=== PATIENT | male | born 1955 | race Caucasian/White ===

== ENCOUNTER → 2021-10-12 08:49 | Outpatient (BNVA) | payer OTHER, SELFPAY | PROVIDERS: PCP Physician Assistant Medical; Visit Provider Orthopaedic Surgery | DX: M72.0 Palmar fascial fibromatosis [Dupuytren] (principal) | CPT/HCPCS: 99202 ==

== ENCOUNTER → 2022-02-15 10:09 | Outpatient (BNVA) | payer OTHER, SELFPAY | PROVIDERS: PCP Physician Assistant Medical; Visit Provider Orthopaedic Surgery | DX: M72.0 Palmar fascial fibromatosis [Dupuytren] (principal) | CPT/HCPCS: 99212 ==

== ENCOUNTER 2022-03-13 06:00 | Day surgery (SDC) | payer OTHER, SELFPAY ==
[2022-03-07 15:30] VITALS: BMI 25.9
--- NOTE | 2022-03-10 09:45 | HO.ANESPROP2 ---
Documented by User: Tara Mensah NP 03/10/22 09:48 HPI - Anesthesia Eval Consult details Narrative: 67yo M for Right ring finger and small finger Dupuytrens Contracture Release Cardiology cleared [facility] Active Problems Active Problems: All Active Problems (Updated 03/07/22 @ 15:32 by Bruna Mcrae RN) Dupuytren's contracture of right hand (Acute) Past Medical History Medical History (Updated 03/07/22 @ 15:32 by Bruna Mcrae RN) Abdominal aortic aneurysm (AAA) Back pain Depression High cholesterol Hypothyroidism Paroxysmal atrial fibrillation Sleep apnea Surgical History Surgical History (Updated 03/07/22 @ 15:28 by Bruna Mcrae RN) Hx of hand surgery Hx of right inguinal hernia repair Hx of tonsillectomy Social History Social History Patient Tobacco Use Status: Current everyday Tobacco user Tobacco use type: Cigarette Cigarette Packs Per Day: 0.5 Cigarettes Per Day: 10.0 Second Hand Smoke Exposure: No Use of substances other than those prescribed or required for medical reasons: No Are you DNR?: No Advance Directives: No Advance Directives Information Provided: Yes Advance Directives on File: No Current occupational status: retired Current occupation: rt hand Meds Allergies Allergy/AdvReac Type Severity Reaction Status Date / Time codeine AdvReac Intermediate Stomach Verified 03/07/22 15:12 Upset Home Medications Medication Instructions Recorded Confirmed Last Taken Type aspirin 81 mg tablet,delayed 81 mg PO DAILY 03/07/22 03/07/22 Unknown History release hydrocodone 5 mg-acetaminophen 325 2 tab PO Q6H PRN Pain 03/07/22 03/07/22 Unknown History mg tablet levothyroxine 75 mcg tablet 75 mcg PO DAILY 03/07/22 03/07/22 Unknown History melatonin 5 mg tablet 5 mg PO BEDTIME PRN Insomnia 03/07/22 03/07/22 Unknown History multivitamin 1 tab PO DAILY 03/07/22 03/07/22 Unknown History simvastatin 40 mg tablet 40 mg PO BEDTIME 03/07/22 03/07/22 Unknown History Exam Exam Date and Time: March 10, 2022 0945 Height,Weight and Vital Signs: Height 5 ft 8 in Weight 77.564 kg Narrative Narrative: EKG 12/2021 NSR @ 70 with poor R wave progression and RSR' variant Assessment and Plan Assessment Anesthesia Assessment: Chart Reviewed Documented by User: Rashaad Masterson MD 03/13/22 07:43 [facility] Past Medical History Medical History (Updated 03/07/22 @ 15:32 by Bruna Mcrae RN) Abdominal aortic aneurysm (AAA) Back pain Depression High cholesterol Hypothyroidism Paroxysmal atrial fibrillation Sleep apnea Family History Family history of problems with anesthesia: No Surgical History Surgical History (Updated 03/07/22 @ 15:28 by Bruna Mcrae RN) Hx of hand surgery Hx of right inguinal hernia repair Hx of tonsillectomy History of Problems with Anesthesia: No Social History Social History Patient Tobacco Use Status: Current everyday Tobacco user Tobacco use type: Cigarette Cigarette Packs Per Day: 0.5 Cigarettes Per Day: 10.0 Second Hand Smoke Exposure: No Use of substances other than those prescribed or required for medical reasons: No Are you DNR?: No Advance Directives: No Advance Directives Information Provided: Yes Advance Directives on File: No Current occupational status: retired Current occupation: rt hand Meds Allergies Allergy/AdvReac Type Severity Reaction Status Date / Time codeine AdvReac Intermediate Stomach Verified 03/07/22 15:12 Upset Home Medications Medication Instructions Recorded Confirmed Last Taken Type aspirin 81 mg tablet,delayed 81 mg PO DAILY 03/07/22 03/07/22 Unknown History release hydrocodone 5 mg-acetaminophen 325 2 tab PO Q6H PRN Pain 03/07/22 03/07/22 Unknown History mg tablet levothyroxine 75 mcg tablet 75 mcg PO DAILY 03/07/22 03/07/22 Unknown History melatonin 5 mg tablet 5 mg PO BEDTIME PRN Insomnia 03/07/22 03/07/22 Unknown History multivitamin 1 tab PO DAILY 03/07/22 03/07/22 Unknown History simvastatin 40 mg tablet 40 mg PO BEDTIME 03/07/22 03/07/22 Unknown History Exam Airway Mallampati Class: II TM Dist: >3cm Neck ROM: Full Denture: Upper Loose/Missing/Broken Teeth: Yes (upper no teeth, lower missing 2 front lower teeth and denies any others loose. very poor dentition) Heart: rrr+[id number] Lungs: cta b/l Assessment and Plan Assessment Anesthesia Assessment: Anesthesia Plan Discussed Final Anesthetic Review Family History of Problems with Anesthesia: No History of Problems with Anesthesia: No NPO: Yes ASA Class: III Final Preanesthetic Review: Meds/Allgs Chart Reviewed, Consent Obtained/Reviewed and Anes Risks/Benef Reviewed Patient Risk: Intermediate Procedure Risk: Intermediate Assessment/Block/Sedation in SS: Assess/Block/Sedation-SS Anesthetic Plan Anesthetic Plan: GA, Regional Block (Patient refused block. he said other side was done without block and did not have any issues) and Agree w/ Assess. and Plan Disposition: Standard PACU
[2022-03-13] VITALS (9 sets, daily range): BP systolic 110–123; BP diastolic 70–79; PULSE 68–88; RESP 16–17; TEMP 36.2–36.5; O2SAT 90–97
[2022-03-13] MEDS: Lactated Ringers 1,000 ML 100 ML IVCONT (06:48)
--- NOTE | 2022-03-13 07:36 | W.PM.OPN ---
Operative Note Operative Note Date of Service: 03/13/22 Narrative: Preop diagnosis: 1. Right ring finger Dupuytren's contracture 2. Right small finger Dupuytren's contracture Postop diagnosis: Same Procedure: 1. Right ring finger Partial Dupuytren's fasciectomy 2. Right small finger partial Dupuytren's fasciectomy in the palm 3. Right ring finger ulnar digital nerve neurolysis 4. Right small finger radial digital nerve neurolysis 5. Right ulnar nerve block Surgeon: Rosie Gonzalez MD Anesthesia: General anesthesia plus regional block Findings: Cord extending from the mid palm to the 4th web space affecting both the small and ring fingers. It then proceeded distally along the ulnar border of the ring finger attaching to the skin and flexor tendon sheath of the middle phalanx and then crossing over to the radial distal aspect of the middle phalanx. The radial digital nerve to the small finger was carefully mobilized and protected during our dissection in the area of the A1 and A2 pulleys.. The ulnar digital nerve of the ring finger was carefully mobilized from the contracted tissue as we progressed from proximal to distal along the ring finger. Implants: None Tourniquet time: 80 minutes EBL: 5.0 ml Specimen: Dupuytren's cord Drains: None Complications: None Disposition: Brought to the recovery room in stable condition Plan: Follow-up in 10-14 days for wound check, suture removal and to check pathology Normally we would have an OT appt on day of f/u to make a custom night spint and to begin OT. However, the patient [facility] and [facility] have all spl[facility] and therapy [facility] through the [facility]. This may be difficult logistically to try to set up. Therefore we may need to improvise an make a nighttime splint in our clinic for him to use. We should also no however try to get him set up with some OT hand therapy through the [facility] if that is possible. Indications: The patient is a 67 year old man with Dupuytren's contractures involving the right ring finger and right small finger. . The risks and benefits of operative treatment, including but not limited to risk of damage to blood vessels, nerves, tendons, infection, recurrence, persistent pain or numbness, incomplete resolution of preoperative symptoms, or need for further surgery were discussed with the patient and they wished to proceed with surgery. Procedure: Once consent was obtained patient was brought back to the operating suite and placed in the operating table in a supine position. The patient did not want to have a regional block. Anesthesia noted that he likely takes about 40 mg or more of hydrocodone daily. Perioperative antibiotics and anesthesia was administered by the anesthesia team. A tourniquet was applied to the proximal aspect of the right upper extremity and the limb was prepped and draped in a standard surgical fashion. The limb was elevated exsanguinated with Esmarch bandage and the tourniquet inflated to 250 mm of mercury for a total tourniquet time of 80 minutes. I made a Shoaib type incision extending along the Dupuytren's cord from the mid palm to the 4th web space and then extending distally over the middle phalanx of the right ring finger. The Incision was made with a 15. Blade through the skin the subcutaneous tissues. I then carefully dissected down to the level of the Dupuytren's cord beginning at the proximal aspect of the incision. This was done using tenotomy and iris scissors. Care was taken to protect the nearby neurovascular structures. The Dupuytren's cord was cut at its proximal aspect using tenotomy scissors. It was then grasped with an Allis clamp. TheDupuytren's cord was then carefully dissected free in a proximal to distal direction using tenotomy scissors and again taking care to protect the nearby neurovascular structures. Interestingly, the cord extended to about the A1 doug of the right small finger and then for the most part proceeded distally over the ulnar aspect of the ring finger. Care was taken to identify 1st the radial digital neurovascular bundle to the small finger. A neurolysis was performed as we mobilized and protected this neurovascular bundle as we freed up the Dupuytren's cord that was attached to the A1 doug area of the flexor tendon sheath to the small finger before proceeding more radially to the ulnar aspect of the ring finger. We then identified and mobilized the right ring finger ulnar digital neurovascular bundle and protected it as we freed up the cord in a proximal to distal direction along the volar aspect of the ring finger. The cord attached to the skin and to the middle phalanx and flexor tendon sheath at the middle phalanx level staying more ulnar and the proximal aspect of the digit. At the middle phalanx level however the cord then crossed obliquely before inserting itself on the radial aspect of the digit at about the D IP flexion crease. The radial digital neurovascular bundle was also appreciated in this area and protected. The cord was dissected free removed and placed on the back table to be sent for histopathology. Further evaluating the digit I could see that there was a deeper cord extending from about the ulnar aspect of the PIP joint distally. The ulnar digital neurovascular bundle passed beneath this cord. The neurovascular bundle was again protected and IR freed up and removed the overlying cord. This 1 was much thinner, but I was concerned that if left in place it could rapidly lead to recurrence. I assessed our range of motion and noted that we had full extension at the MCP and PIP joints of both the small and ring fingers. At this point the tourniquet was deflated and hemostasis obtained with a brief period of local pressure and bipolar electrocautery. The wound was copiously irrigated with normal saline. The skin edges were reapproximated with 4-0 and 5-0 Prolene suture. I performed an ulnar nerve block by infiltrating about the ulnar nerve at the wrist with some 0.5% plain ropivacaine for postop pain control. The wound was also infiltrated with some 0.5% plain ropivacaine. A volar splint holding the small and ring fingers in extension was applied. The patient appears to have tolerated the procedure well and with no complications. All digits were well vascularized conclusion of the case.
== END 2022-03-13 11:58 | disposition home or self-care (01) ==
PROVIDERS: PCP Physician Assistant Medical; Visit Provider Orthopaedic Surgery
PROC: (CPT 26045; principal; 2022-03-13 07:30)
DX: M72.0 Palmar fascial fibromatosis [Dupuytren] (principal); R20.0 Anesthesia of skin; I48.91 Unspecified atrial fibrillation; I10 Essential (primary) hypertension; I71.4 Abdominal aortic aneurysm, without rupture; F32.A Depression, unspecified; E78.00 Pure hypercholesterolemia, unspecified; E03.9 Hypothyroidism, unspecified; G47.33 Obstructive sleep apnea (adult) (pediatric); G47.00 Insomnia, unspecified; G89.29 Other chronic pain; M54.59 Other low back pain; Z79.891 Long term (current) use of opiate analgesic; Z79.899 Other long term (current) drug therapy; Z79.82 Long term (current) use of aspirin; F17.210 Nicotine dependence, cigarettes, uncomplicated
CPT/HCPCS: 26123; 26125; 88304; J0171; J0690; J1100; J1170; J2250; J2405; J2795; J3010

== ENCOUNTER 2022-04-06 07:00 | Outpatient (RCR) | payer OTHER, SELFPAY ==
--- NOTE | 2022-03-22 12:00 | MHC.OT.EP ---
[address] [phone] Occupational Therapy Plan of Care Date of Evaluation: 03/22/22 Diagnosis: Right ring finger and small finger partial Dupuytren's fasciectomy, right ring finger ulnar digital nerve neurolysis, right small finger radial digital nerve neurolysis, Assessment: 67 yo right hand dominant male, presents to OT 9 days post-op right ring and small finger Dupuytren's constracture release. He was seen today in ortho office and reports about half of the sutures were removed and the other half will be removed next week. Dressing is clean, dry and intact. Pt lives alone at baseline and is Ind w/ daily activities, he has been having more difficulty due to post-op dressing on dominant right hand, but otherwise doing well. We have provided him w/ custom hand based orthosis w/ D4-D5 extension and he has been educated on initiation of home exercise progream. He will continue at [facility] for brief course of hand therapy prior to transferring care under [facility]. Frequency and Duration: The patient will be seen 2x/wk for 3 weeks Short Term Goals: Ind w/ orthosis wear and care Ind w/ wound care awareness and safety Ind w/ HEP Pt to demo active flexion tip-DPC Pt to demo full active MCP extension Pt to utilize right hand for light daily activities Tile Setter Supervisor Goals: same as above Treatment Plan: Therapeutic Exercise Therapeutic Activity Home Exercise Program Splinting Patient Education Desensitization/Sensory Re-ed Edema Control ADL Training Fluidotherapy MHP Soft Tissue Mobilization Kinesiotaping Hand based D4-D5 ext orthosis Electronically Signed By: ONEIL Vieira/Junie CHT Please Sign and return to therapist. Thank you once again for your referral.
--- NOTE | 2022-04-10 11:58 | MHC.OT.DC ---
[address] [phone] F: [phone] Occupational Therapy Discharge Note Provider: Dr Gonzalez Diagnosis: Right ring finger and small finger partial Dupuytren's fasciectomy, right ring finger ulnar digital nerve neurolysis, right small finger radial digital nerve neurolysis, Date of Surgery: 03/13/22 Date of Evaluation: 03/22/22 Date of Discharge: 04/10/22 Treatments to Date: 4 Discharge Status: Achieved Short Term Goals Independent with HEP Insurance Declined Tx Discharge Summary: [place] is doing well w/ post-op fasciectomy, no issues w/ orthosis and consistent w/ nighttime wear. Good follow through w/ HEP and significantly improved ROM. At this time, insurance is changing hand therapy to [facility] coverage and he will resume care in [facility]. Electronically Signed By: ONEIL Vieira/Junie SUNT Reviewed/agree with student documentation: Therapist: Please Sign and return to therapist, thank you for your referral.
== END 2022-04-10 11:59 | disposition home or self-care (01) ==
LOC: HO.OT 07:00
PROVIDERS: PCP Physician Assistant Medical; Visit Provider Orthopaedic Surgery
DX: M72.0 Palmar fascial fibromatosis [Dupuytren] (principal)
CPT/HCPCS: 29130; 97110; 97140; 97165; 97760